=== PATIENT | female | born 1940 | race Caucasian/White ===

== ENCOUNTER 2022-02-09 13:13 | Emergency (ER) | payer MEDICARE ==
[2022-02-09] MEDS ORDERED: ACETAMINOPHEN TAB 325 MG TAB PO STA (14:48)
--- NOTE | 2022-02-09 15:40 | CT ---
EXAMINATION TYPE: CT brain ken wo con DATE OF EXAM: 02/09/2022 COMPARISON: None HISTORY: 81-year-old female pain after Fall, laceration to nasal bone CT DLP: 973.6 mGycm Automated exposure control for dose reduction was used. Technique: Examination of the head was done in axial plane without intravenous contrast. Coronal and sagittal reconstructions performed. CT of the cervical spine was obtained in axial plane without intravenous injection of contrast mater ial. Coronal and sagittal reformatted images were obtained from the axial views for evaluation of f ractures, spinal alignment and canal. FINDINGS: Head: Slight 1 mm step-off along the left nasal bone. Soft tissue swelling is present but located more supe riorly overlying the bridge of the nose. Laceration and anterior right frontal scalp contusion. No underlying calvarial fracture. There is no evidence of acute intracranial hemorrhage, acute ischemic changes, mass, mass-effect, or extra-axial fluid collection. There is no effacement of cerebral sulci or basal subarachnoid cister ns. There is no hydrocephalus. There is no midline shift. Casanova-white matter distinction is preserv ed. Mild to moderate generalized supratentorial volume loss. Secondary mild prominence to the ventricular system. Mild white matter hypodensities in both cerebral hemispheres. Paranasal sinuses are well pneumatized. Orbits orbits and globes are intact. Mastoid air cells are we ll pneumatized. Slight rightward nasal septal deviation. Cervical spine: Extensive bilateral upper lung interstitial opacities. Chronicity unclear. Consider chronic hypersens itivity pneumonitis, pneumoconiosis, chronic sequela of TB or other fungal infection, or sarcoidosis. No craniocervical junction abnormality, predental space widening, or prevertebral soft tissue swellin g. Moderate to advanced multilevel disc/endplate degenerative change with hypertrophic facet and uncover tebral joint arthropathy. Grade 1 anterolisthesis C2-C3. Grade 1 retrolisthesis C3-C4, C4-C5, and C5-C6. Disc osteophyte complexes are present at multiple levels contributing to at least mild spinal canal s tenosis. More mild to moderate at C3-C4. No acute fracture seen of the cervical spine. There are variable moderate bilateral neuroforaminal stenoses throughout, more moderate to severe on the left at C5-C6. Sagittal and coronal reformatted images confirm above findings. COMBINED IMPRESSION: 1. Anterior right frontal laceration and scalp contusion. Some additional soft tissue swelling overly ing the bridge of the nose. No acute intracranial abnormality seen. 2. Mild to moderate generalized atrophy and mild burden of chronic small vessel ischemic disease. 3. Moderate multilevel spondylotic change. Degenerative grade 1 spondylolisthesis C2-C3 through C5-C6 . No acute fracture of the cervical spine. 4. Extensive opacities within the visualized upper lungs. Further clinical correlation recommended fo r any known diagnosis. Some differential considerations above.
[2022-02-09] MEDS ORDERED: hydrALAZINE HCL 20 MG/ML 1 ML VIAL IM STA ×2 (15:54→16:38)
[2022-02-09] MEDS ORDERED: LORazepam 1 MG TAB PO STA (16:38)
--- NOTE | 2022-02-09 17:11 | ED ---
Fall HPI - General Chief Complaint: Fall Stated Complaint: trip & fall Time Seen by Provider: 02/09/22 14:47 Source: patient, EMS, RN notes reviewed Mode of arrival: EMS - History of Present Illness Initial Comments: An 81-year-old female who presents to the emergency department after falling in a grocery store. States that she tripped over a rug and fell face forward. States that there is a significant amount of bleeding from the abrasion on her nose. She also knocked out her artificial front teeth. Patient denies any dizziness, lightheadedness, chest pain, shortness of breath, or any other symptoms prior to falling. Denies any loss of consciousness, nausea, vomiting. She does state that she feels slightly dazed and has a headache. Denies being on any blood thinners. MD Complaint: fall Fall From: standing Fall Witnessed: yes, by bystander Place Fall Occurred: other (grocery store) Loss of Consciousness: none Prolonged Down Time?: no Symptoms Prior to Fall: none Location: head, face Associated Symptoms: headache - Related Data Home Medications Medication Instructions Recorded Confirmed Adalimumab [Humira(Cf) Pen] 40 mg SQ Q14D 02/09/22 02/09/22 Escitalopram [Lexapro] 20 mg PO BID 02/09/22 02/09/22 Estrogens, Conjugated [Premarin] 0.625 mg PO DAILY 02/09/22 02/09/22 Gabapentin [Neurontin] 200 mg PO HS 02/09/22 02/09/22 NIFEdipine XL [Procardia Xl] 90 mg PO DAILY 02/09/22 02/09/22 Omeprazole Magnesium [PriLOSEC OTC] 20 mg PO BID 02/09/22 02/09/22 Allergies Allergy/AdvReac Type Severity Reaction Status Date / Time No Known Allergies Allergy Verified 02/09/22 17:29 Review of Systems ROS Statement: Those systems with pertinent positive or pertinent negative responses have been documented in the HPI. ROS Other: All systems not noted in ROS Statement are negative. Constitutional: Denies: fever, chills Eyes: Denies: vision change ENT: Denies: ear pain, throat pain Respiratory: Denies: cough, dyspnea Cardiovascular: Denies: chest pain, palpitations Gastrointestinal: Denies: abdominal pain, nausea, vomiting, diarrhea Genitourinary: Denies: urgency, dysuria Musculoskeletal: Denies: back pain Skin: Denies: rash Neurological: Reports: headache Past Medical History Past Medical History: Hypertension, Rheumatoid Arthritis (RA) History of Any Multi-Drug Resistant Organisms: None Reported Past Surgical History: Appendectomy, Cardiac Ablation, Hysterectomy, Orthopedic Surgery, Tonsillectomy Past Psychological History: Depression Smoking Status: Never smoker Past Alcohol Use History: Occasional Past Drug Use History: None Reported General Exam Limitations: no limitations General appearance: alert, in no apparent distress Head exam: Present: other (Abrasion on the nasalis with no active bleeding. Hematoma on the frontal scalp. ) Eye exam: Present: normal appearance, PERRL, EOMI. Absent: scleral icterus, conjunctival injection, periorbital swelling Pupils: Present: normal accommodation ENT exam: Present: mucous membranes moist, normal external ear exam Expanded Mouth exam: Present: other (Teeth 7-10 missing) Neck exam: Present: normal inspection. Absent: tenderness, meningismus, lymphadenopathy Respiratory exam: Present: normal lung sounds bilaterally. Absent: respiratory distress, wheezes, rales, rhonchi, stridor Cardiovascular Exam: Present: regular rate, normal rhythm, normal heart sounds. Absent: systolic murmur, diastolic murmur, rubs, gallop, clicks Back exam: Present: normal inspection, full ROM. Absent: paraspinal tenderness, vertebral tenderness Neurological exam: Present: alert, oriented X3, CN II-XII intact Psychiatric exam: Present: normal affect, normal mood Skin exam: Present: warm, dry. Absent: rash Course Vital Signs 02/09/22 02/09/22 02/09/22 13:15 15:07 15:50 Temperature 97.7 F Pulse Rate 90 85 86 Respiratory 16 16 16 Rate Blood Pressure 196/70 198/100 238/124 O2 Sat by Pulse 98 97 97 Oximetry 02/09/22 02/09/22 02/09/22 16:39 17:01 17:28 Temperature Pulse Rate 117 H 117 H Respiratory 18 18 Rate Blood Pressure 204/98 196/103 149/78 O2 Sat by Pulse 97 97 Oximetry 02/09/22 17:45 Temperature 97.8 F Pulse Rate 102 H Respiratory 16 Rate Blood Pressure 124/74 O2 Sat by Pulse 95 Oximetry Medical Decision Making - Medical Decision Making This is an 81-year-old female who presents to the emergency department after sustaining a fall. Given the patient's age, and the fact that she continues to feel slightly dazed after the event, will proceed with a computed tomography scan of the head and neck. Computed tomography scan of the head and neck was negative for any acute changes. However the computed tomography scan did visualize the top of her lungs and identified multiple opacities bilaterally. Discussed these findings with the patient, she states that she has had a chronic cough, however she has not had any imaging. I offered to order a chest x-ray, the patient declines at this time, as she does not want to wait for the test. She has a follow-up scheduled with Dr. Conner, pulmonology, in 2 weeks, and will discuss these findings with him. While the patient was in the emergency department, her blood pressure continued to elevate. BP went as high as 238/124. She was given 30 mg of hydralazine, and before discharge, her blood pressure went down to 124/74. An EKG was obtained at this time and did not identify any acute findings. Advised she monitor her blood pressure home for any significant changes. She is advised to continue with Tylenol as needed at home for pain. Return precautions reviewed in depth, the patient is instructed to return to the emergency department with any new, worsening, or concerning symptoms. Patient verbalized understanding. This case was discussed in detail with the attending ED physician. Presentation, findings, and treatment plan discussed in detail as well. - EKG Data EKG Comments: Sinus tachycardia, right atrial enlargement, left atrial enlargement, nonspecific ST and T wave abnormality. Ventricular rate 113 bpm, MD interval 169 ms, QRS duration 78 ms, QTC 465 ms. - Radiology Data Radiology results: report reviewed, image reviewed Disposition Clinical Impression: Fall Disposition: HOME SELF-CARE Instructions (If sedation given, give patient instructions): Fall Prevention for Older Adults (ED) Additional Instructions: Return to the emergency department with any new, worsening, or concerning symptoms. Follow-up with Dr. Conner as scheduled to discuss your CT findings of the lungs and chronic cough. Follow up with your primary care provider in 1 to 2 days. Take Tylenol as needed for pain. Is patient prescribed a controlled substance at d/c from ED?: No Referrals: Anita Flores MD [Primary Care Provider] - 1-2 days
[2022-02-09 17:47] VITALS: BP 124/74; PULSE 102; RESP 16; TEMP 97.8
== END 2022-02-09 17:51 | disposition home or self-care (01) ==
LOC: EC 13:13
DX: S00.03XA Contusion of scalp, initial encounter (principal); S00.31XA Abrasion of nose, initial encounter; I10 Essential (primary) hypertension; M06.9 Rheumatoid arthritis, unspecified; F32.A Depression, unspecified; Z90.49 Acquired absence of other specified parts of digestive tract; Z90.710 Acquired absence of both cervix and uterus; W01.0XXA Fall on same level from slipping, tripping and stumbling without subsequent striking against object, initial encounter; Y92.512 Supermarket, store or market as the place of occurrence of the external cause
CPT/HCPCS: 99284; 96372 ×2; 93005; 72125; 70450; J0360

== ENCOUNTER → 2022-04-11 | Outpatient (CLI) | payer MEDICARE ==
[2022-04-11 22:49] LABS: Basophils # (A) 0.05 X 10*3/uL (0.00-0.10); Eosinophils # (A) 0.16 X 10*3/uL (0.04-0.35); HCT 39.7 % (37.2-46.3); HGB 12.3 g/dL (12.0-15.0); Immature Grans, Automated 0.2 %; Lymphocytes # (A) 2.18 X 10*3/uL (0.90-5.00); Lymphocytes % (A) 41.4 %; MCH 29.6 pg (27.0-32.0); MCV 95.7 fL (80.0-97.0); Mean Platelet Volume 9.8 fL (9.5-12.2); Monocytes # (A) 0.77 X 10*3/uL (0.20-1.00); Monocytes % (A) 14.6 %; NRBC Per 100 WBC 0 /100 WBCS (0.0-0.0); Neutrophils # (A) 2.09 X 10*3/uL (1.80-7.70); Neutrophils % (A) 39.8 %; Platelet Count 329 X 10*3/uL (140-440); RBC 4.15 X 10*6/uL (4.10-5.20); WBC 5.26 X 10*3/uL (4.50-10.00)
== END | disposition home or self-care (01) ==
LOC: LABWHC1 13:50
PROVIDERS: ATTEND Surgery
DX: F40.218 Other animal type phobia (principal)
CPT/HCPCS: 36415; 85025

== ENCOUNTER → 2022-05-09 | Outpatient (CLI) | payer MEDICARE ==
[2022-05-09 17:36] LABS: African American GFR (CKD) >90 (>60 ml/min/1.73 sqM); Blood Urea Nitrogen 12 mg/dL (7-17); Non-African American GFR(CKD) 80 (>60 ml/min/1.73 sqM)
--- NOTE | 2022-05-09 18:50 | CT ---
EXAMINATION TYPE: CT abdomen w con DATE OF EXAM: 05/09/2022 COMPARISON: None HISTORY: LLQ pain CT DLP: 290.6 mGycm Automated exposure control for dose reduction was used. CONTRAST: Performed with IV Contrast, patient injected with 100ml mL of Isovue 300. There is extensive coarse interstitial reticular infiltrate in the mid and lower lung cooper. No pleu ral effusion. Heart size is normal. No pericardial effusion. Liver is intact. Spleen is intact. The stomach has normal size. The bile ducts are not dilated. Gallb ladder appears normal. There is no pancreatic mass. There is no adrenal mass. There is 2 cm cortical cyst upper pole left kidney. Kidneys show satisfacto ry contrast opacification. There is no hydronephrosis. Delayed images show normal renal excretion. No retroperitoneal adenopathy. There is thoracolumbar dextroscoliotic deformity. Abdominal aorta shows mild atheromatous changes. There is multilevel lumbar spondylotic changes. No compression fracture. There is no sign of mesenteric edema. No ascites or free air. No sign of a bowel obstruction. There i s oral contrast material that extends to the descending colon. Pelvic structures not included on this exam. There is L3 subluxation more than 1 cm to the right side L4. IMPRESSION: Extensive infiltrates in the lower lobes likely related to severe pulmonary fibrosis. No acute abnormality within the abdomen. Lumbar scoliotic deformity. Spondylotic changes. Pelvic stru ctures not included on this exam in this patient with left lower quadrant pain.
== END | disposition home or self-care (01) ==
LOC: RADCTMAIN 15:57
PROVIDERS: ATTEND Family Medicine
DX: R10.32 Left lower quadrant pain (principal); R91.8 Other nonspecific abnormal finding of lung field
CPT/HCPCS: 82565; 84520; 74160; 36415; Q9967

== ENCOUNTER 2022-08-27 10:10 | Emergency (ER) | payer MEDICARE ==
[2022-08-27 10:25] VITALS: TEMP 98.5
[2022-08-27] MEDS ORDERED: SODIUM CHLORIDE 0.9% 1,000 ML IV STA (11:13)
--- NOTE | 2022-08-27 11:37 | ED ---
General Adult HPI - General Chief complaint: Weakness Stated complaint: weakness Time Seen by Provider: 08/27/22 11:07 Source: patient Mode of arrival: ambulatory Limitations: no limitations - History of Present Illness Initial comments: Patient is an 81-year-old female presenting with chief complaint of abdominal pain. Patient has been experiencing left lower quadrant pain over the past 2-3 weeks. She also admits to diarrhea. No hematochezia or melena. She admits to nausea with no vomiting. No fever or chills. No chest pain or difficulty breat pradip. No palpitations. Patient states that she has been increasingly weak due to inability to tolerate oral intake due to the pain and severe diarrhea. Denies recent antibiotic use. Patient states that she has this type of pain every few years, states that her workup is normally negative. No dysuria, hematuria, radiation of pain to the back. No recent hospital admission or history of C. diff. - Related Data Home Medications Medication Instructions Recorded Confirmed Adalimumab [Humira(Cf) Pen] 40 mg SQ Q14D 02/09/22 08/27/22 Escitalopram [Lexapro] 20 mg PO DAILY 02/09/22 08/27/22 Estrogens, Conjugated [Premarin] 0.625 mg PO DAILY 02/09/22 08/27/22 Gabapentin [Neurontin] 200 mg PO HS 02/09/22 08/27/22 Fluticasone/Umeclidin/Vilanter 1 puff INHALATION RT-DAILY 08/27/22 08/27/22 [Trelegy Ellipta 100-62.5-25] Leflunomide 20 mg PO DAILY 08/27/22 08/27/22 Losartan/Hydrochlorothiazide 1 tab PO DAILY 08/27/22 08/27/22 [Losartan-Hctz 100-25 mg Tab] Meloxicam [Mobic] 15 mg PO DAILY PRN 08/27/22 08/27/22 Previous Rx's Medication Instructions Recorded Amoxic-Pot Clav 875-125Mg 1 tab PO BID 7 Days #14 tab 08/27/22 [Augmentin 875-125] Ondansetron Odt [Zofran Odt] 4 mg PO Q8HR PRN #20 tab 08/27/22 Allergies Allergy/AdvReac Type Severity Reaction Status Date / Time No Known Allergies Allergy Verified 10/23/22 12:13 Review of Systems ROS Statement: Those systems with pertinent positive or pertinent negative responses have been documented in the HPI. ROS Other: All systems not noted in ROS Statement are negative. Past Medical History Past Medical History: Hypertension, Rheumatoid Arthritis (RA) History of Any Multi-Drug Resistant Organisms: None Reported Past Surgical History: Appendectomy, Cardiac Ablation, Hysterectomy, Orthopedic Surgery, Tonsillectomy Past Psychological History: Depression Smoking Status: Never smoker Past Alcohol Use History: Occasional Past Drug Use History: None Reported General Exam Limitations: no limitations General appearance: alert, in no apparent distress Head exam: Present: atraumatic, normocephalic, normal inspection Eye exam: Present: normal appearance, PERRL, EOMI. Absent: scleral icterus, conjunctival injection, periorbital swelling Neck exam: Present: normal inspection, full ROM GI/Abdominal exam: Present: soft, tenderness (LLQ). Absent: distended, guarding, rebound, rigid Neurological exam: Present: alert, oriented X3, CN II-XII intact Psychiatric exam: Present: normal affect, normal mood Skin exam: Present: warm, dry, intact, normal color. Absent: rash Course Vital Signs 08/27/22 08/27/22 10:22 13:47 Temperature 98.5 F Pulse Rate 108 H 79 Respiratory 20 18 Rate Blood Pressure 133/80 177/98 O2 Sat by Pulse 99 95 Oximetry Medical Decision Making - Medical Decision Making Patient is an 81-year-old female presenting with chief complaint of left lower quadrant pain and diarrhea. Symptoms have been ongoing for the last 2 weeks. On examination patient has some tenderness to left lower quadrant. Workup is grossly negative. CT of abdomen and pelvis sees no acute process. Patient presents clinically consistent with colitis, will treat with Augmentin and advised clear liquid diet.Follow-up with PCP. Report back to ER with any new or worsening symptoms. Discussed return parameters and answered all questions. Patient conveyed verbal understanding and agreed to the plan. I discussed this case in detail with my attending Dr. Mckeon - Lab Data Result diagrams: 08/27/22 11:48 08/27/22 11:48 Lab Results 08/27/22 08/27/22 08/27/22 Range/Units 11:48 11:48 11:48 WBC 4.2 (3.8-10.6) k/uL RBC 4.49 (3.80-5.40) m/uL Hgb 14.0 (11.4-16.0) gm/dL Hct 42.4 (34.0-46.0) % MCV 94.4 (80.0-100.0) fL MCH 31.1 (25.0-35.0) pg MCHC 33.0 (31.0-37.0) g/dL RDW 13.8 (11.5-15.5) % Plt Count 225 (150-450) k/uL MPV 8.2 Neutrophils % 52 % Lymphocytes % 39 % Monocytes % 6 % Eosinophils % 1 % Basophils % 1 % Neutrophils # 2.2 (1.3-7.7) k/uL Lymphocytes # 1.6 (1.0-4.8) k/uL Monocytes # 0.3 (0-1.0) k/uL Eosinophils # 0.0 (0-0.7) k/uL Basophils # 0.0 (0-0.2) k/uL PT 10.5 (9.0-12.0) sec INR 1.0 (<1.2) APTT 25.7 (22.0-30.0) sec Sodium 137 (137-145) mmol/L Potassium 4.8 (3.5-5.1) mmol/L Chloride 104 (98-107) mmol/L Carbon Dioxide 27 (22-30) mmol/L Anion Gap 6 mmol/L BUN 9 (7-17) mg/dL Creatinine 0.63 (0.52-1.04) mg/dL Est GFR (CKD-EPI)AfAm >90 (>60 ml/min/1.73 sqM) Est GFR (CKD-EPI)NonAf 84 (>60 ml/min/1.73 sqM) Glucose 92 (74-99) mg/dL Plasma Lactic Acid Vahid (0.7-2.0) mmol/L Calcium 9.1 (8.4-10.2) mg/dL Phosphorus 3.1 (2.5-4.5) mg/dL Magnesium 1.8 (1.6-2.3) mg/dL Total Bilirubin 0.6 (0.2-1.3) mg/dL AST 46 H (14-36) U/L ALT 25 (4-34) U/L Alkaline Phosphatase 77 (38-126) U/L Total Protein 7.0 (6.3-8.2) g/dL Albumin 4.2 (3.5-5.0) g/dL Amylase 74 (30-110) U/L Lipase 173 (23-300) U/L Urine Color Urine Appearance (Clear) Urine pH (5.0-8.0) Ur Specific Boyd (1.001-1.035) Urine Protein (Negative) Urine Glucose (UA) (Negative) Urine Ketones (Negative) Urine Blood (Negative) Urine Nitrite (Negative) Urine Bilirubin (Negative) Urine Urobilinogen (<2.0) mg/dL Ur Leukocyte Esterase (Negative) 08/27/22 08/27/22 Range/Units 11:48 12:59 WBC (3.8-10.6) k/uL RBC (3.80-5.40) m/uL Hgb (11.4-16.0) gm/dL Hct (34.0-46.0) % MCV (80.0-100.0) fL MCH (25.0-35.0) pg MCHC (31.0-37.0) g/dL RDW (11.5-15.5) % Plt Count (150-450) k/uL MPV Neutrophils % % Lymphocytes % % Monocytes % % Eosinophils % % Basophils % % Neutrophils # (1.3-7.7) k/uL Lymphocytes # (1.0-4.8) k/uL Monocytes # (0-1.0) k/uL Eosinophils # (0-0.7) k/uL Basophils # (0-0.2) k/uL PT (9.0-12.0) sec INR (<1.2) APTT (22.0-30.0) sec Sodium (137-145) mmol/L Potassium (3.5-5.1) mmol/L Chloride (98-107) mmol/L Carbon Dioxide (22-30) mmol/L Anion Gap mmol/L BUN (7-17) mg/dL Creatinine (0.52-1.04) mg/dL Est GFR (CKD-EPI)AfAm (>60 ml/min/1.73 sqM) Est GFR (CKD-EPI)NonAf (>60 ml/min/1.73 sqM) Glucose (74-99) mg/dL Plasma Lactic Acid Vahid 1.0 (0.7-2.0) mmol/L Calcium (8.4-10.2) mg/dL Phosphorus (2.5-4.5) mg/dL Magnesium (1.6-2.3) mg/dL Total Bilirubin (0.2-1.3) mg/dL AST (14-36) U/L ALT (4-34) U/L Alkaline Phosphatase (38-126) U/L Total Protein (6.3-8.2) g/dL Albumin (3.5-5.0) g/dL Amylase (30-110) U/L Lipase (23-300) U/L Urine Color Light Yellow Urine Appearance Clear (Clear) Urine pH 6.5 (5.0-8.0) Ur Specific Boyd 1.015 (1.001-1.035) Urine Protein Negative (Negative) Urine Glucose (UA) Negative (Negative) Urine Ketones Trace H (Negative) Urine Blood Negative (Negative) Urine Nitrite Negative (Negative) Urine Bilirubin Negative (Negative) Urine Urobilinogen <2.0 (<2.0) mg/dL Ur Leukocyte Esterase Negative (Negative) Disposition Clinical Impression: Colitis Disposition: HOME SELF-CARE Condition: Fair Instructions (If sedation given, give patient instructions): Clear Liquid Diet (ED), Colitis (ED) Additional Instructions: Follow-up with PCP. Report back to ER with any new or worsening symptoms. Take medication as prescribed. Follow clear liquid diet for the next 3 days. Prescriptions: Amoxic-Pot Clav 875-125Mg [Augmentin 875-125] 1 tab PO BID 7 Days #14 tab Ondansetron Odt [Zofran Odt] 4 mg PO Q8HR PRN #20 tab PRN Reason: Nausea Is patient prescribed a controlled substance at d/c from ED?: No Referrals: Anita Flores MD [Primary Care Provider] - 1-2 days Time of Disposition: 14:14
[2022-08-27 11:58] LABS: Basophils % (A) 1 %; Eosinophils % (A) 1 %; HCT 42.4 % (34.0-46.0); Lymphocytes # (A) 1.6 k/uL (1.0-4.8); Lymphocytes % (A) 39 %; MCH 31.1 pg (25.0-35.0); MCV 94.4 fL (80.0-100.0); Mean Platelet Volume 8.2; Monocytes # (A) 0.3 k/uL (0-1.0); Monocytes % (A) 6 %; Neutrophils # (A) 2.2 k/uL (1.3-7.7); Neutrophils % (A) 52 %; Platelet Count 225 k/uL (150-450); RBC 4.49 m/uL (3.80-5.40); RDW 13.8 % (11.5-15.5); WBC 4.2 k/uL (3.8-10.6)
[2022-08-27 12:07] LABS: ALT 25 U/L (4-34); AST 46 U/L (14-36); African American GFR (CKD) >90 (>60 ml/min/1.73 sqM); Albumin 4.2 g/dL (3.5-5.0); Alkaline Phosphatase 77 U/L (38-126); Amylase 74 U/L (30-110); Anion Gap 6 mmol/L; Blood Urea Nitrogen 9 mg/dL (7-17); Calcium 9.1 mg/dL (8.4-10.2); Carbon Dioxide 27 mmol/L (22-30); Chloride 104 mmol/L (98-107); Glucose 92 mg/dL (74-99); Lipase 173 U/L (23-300); Magnesium 1.8 mg/dL (1.6-2.3); Non-African American GFR(CKD) 84 (>60 ml/min/1.73 sqM); Phosphorus 3.1 mg/dL (2.5-4.5); Potassium 4.8 mmol/L (3.5-5.1); Sodium 137 mmol/L (137-145); Total Bilirubin 0.6 mg/dL (0.2-1.3)
[2022-08-27 12:16] LABS: Partial Thromboplastin Time 25.7 sec (22.0-30.0); Prothrombin Time 10.5 sec (9.0-12.0)
--- NOTE | 2022-08-27 12:59 | CT ---
EXAMINATION TYPE: CT abdomen pelvis w con DATE OF EXAM: 08/27/2022 HISTORY: pain and vomiting. Weakness. CT DLP: 438.2mGycm Automated Exposure Control for Dose Reduction was Utilized. CONTRAST: CT scan of the abdomen and pelvis is performed with IV Contrast, patient injected with 100 mL of Isov ue 300. COMPARISON: CT abdomen May 09, 2022 FINDINGS: LUNG BASES: Parenchymal fibrotic changes in the bases redemonstrated. Mosaic attenuation could reflec t areas of edema similar in appearance to prior. Resolved nodular infiltrate medial right lung base a xial image 17 on the prior study LIVER/GB: No significant abnormality is appreciated. PANCREAS: No significant abnormality is seen. SPLEEN: No significant abnormality is seen. ADRENALS: No significant abnormality is seen. KIDNEYS: Their is 1.9 cm simple appearing thin-walled cyst upper pole left kidney redemonstrated. Sta ble 5 mm nonobstructing calculus lower pole of the left kidney axial image 28 redemonstrated. Symmetr ic cortical medullary uptake and excretion without hydronephrosis seen bilaterally. BOWEL: Suboptimal evaluation of bowel without enteric contrast. Stomach poorly distended and thus sub optimally evaluated. No suspicious small or large bowel dilatation. Diverticula in the sigmoid colon are present. Mild mesenteric edema is nonspecific finding. UTERUS/ADNEXA: Uterus surgically absent or markedly atrophic. Scattered small pelvic phleboliths are noted. LYMPH NODES: No greater than 1cm abdominal or pelvic lymph nodes are appreciated. OSSEOUS STRUCTURES: Dextroconvex scoliosis centered at L2 level redemonstrated. There is moderate-to- severe multilevel disc space narrowing with multiple levels spurring and vacuum disc phenomenon throu ghout the thoracolumbar spine redemonstrated. Multilevel facet arthropathy is seen in the lumbar spin e. OTHER: Ectatic course to the abdominal aorta redemonstrated. IMPRESSION: No bowel obstruction. No significant acute finding is seen to account for patient's clini henny symptoms.
[2022-08-27 13:02] LABS: Appearance,Urine Clear (Clear); Bilirubin,Urine Negative (Negative); Blood,Urine Negative (Negative); Color,Urine Light Yellow; Glucose,Urine (UA) Negative (Negative); Ketones,Urine Trace (Negative); Leukocyte Esterase,Urine Negative (Negative); Nitrite,Urine Negative (Negative); PH, Urine 6.5 (5.0-8.0); Protein,Urine Negative (Negative); Specific Gravity,Urine 1.015 (1.001-1.035); Urobilinogen,Urine <2.0 mg/dL (<2.0)
[2022-08-27 13:48] VITALS: BP 177/98; PULSE 79; RESP 18
== END 2022-08-27 14:33 | disposition home or self-care (01) ==
LOC: EC 10:10
DX: K52.9 Noninfective gastroenteritis and colitis, unspecified (principal); I10 Essential (primary) hypertension; M06.9 Rheumatoid arthritis, unspecified; F32.A Depression, unspecified; Z79.899 Other long term (current) drug therapy; Z79.811 Long term (current) use of aromatase inhibitors; Z79.1 Long term (current) use of non-steroidal anti-inflammatories (NSAID)
CPT/HCPCS: 36415; 80053; 82150; 83605; 83690; 83735; 84100; 85025; 85610; 85730; 81003; 74177; 99285; 96360; Q9967